=== PATIENT | male | born 1970 | race Caucasian/White ===

== ENCOUNTER 2017-06-14 06:21 | Emergency (ER) | payer MEDICARE, MEDICAID ==
[2017-06-14 06:29] VITALS: BP 145/69
[2017-06-14] MEDS ORDERED: Aspirin 81 MG Tab.Chew PO ONE (06:33)
--- NOTE | 2017-06-14 06:50 | EDM.PDOC ---
ED HPI GENERAL MEDICAL PROBLEM - General Chief Complaint: Respiratory Problem Stated Complaint: dizziness Time Seen by Provider: 06/14/17 06:21 Source of Information: Reports: Patient, EMS History Limitations: Reports: No Limitations - History of Present Illness INITIAL COMMENTS - FREE TEXT/NARRATIVE: Patient presents per EMS with complaints of shortness of breath, chest pain and syncope. He relates he left home at 11 pm last [place] States he missed his turn and has been driving all night. He states "was sort of lost but also just driving". He states he started to feel lightheaded, awoke in the ditch and had chest pain and shortness of breath. Questions if he possibly anxious due to the events. Does have a seizure history but relates did not feel a seizure coming on, hasn't had one for 5-6 years. No loss of bowel or bladder control. He was recently started on a new blood pressure medication and also questions if that made him lightheaded. Had been sober for 9 months, admits to one alcoholic beverage yesterday afternoon. Did eat last evening, has been drinking water. Does have a history of CAD, COPD and venous stasis. Also relates he has a history of a high ammonia level and was hallucinating because of it last fall which resulted in a hospital stay at the [facility]. He has been "trying to take better care of myself" since that time. Onset: Today, Sudden Duration: Minutes:, Resolved Prior to Arrival Location: Reports: Generalized Severity: Mild Associated Symptoms: Reports: Chest Pain, Shortness of Breath, Syncope. Denies : Fever/Chills, Nausea/Vomiting, Seizure - Related Data Allergies Allergy/AdvReac Type Severity Reaction Status Date / Time cat dander Allergy Cannot Verified 09/05/16 07:54 MDT Remember strawberry Allergy Cannot Verified 06/14/17 06:32 Remember pcn Allergy Hives Uncoded 06/14/17 06:32 Home Meds: Home Meds Divalproex Sodium [Depakote] 1,000 mg PO BID 08/29/16 [History] Melatonin 6 mg PO BEDTIME 09/05/16 [History] Naltrexone Microspheres [Vivitrol] 380 mg PO DAILY 06/14/17 [History] Past Medical History HEENT History: Reports: Impaired Vision Other HEENT History: glasses Cardiovascular History: Reports: Heart Failure, Hypertension, [place] Respiratory History: Reports: COPD Gastrointestinal History: Reports: Fecal Incontinence Musculoskeletal History: Reports: Fracture Neurological History: Reports: Concussion Psychiatric History: Reports: Bipolar, Psych Hospitalization(s), Other (See Below) Other Psychiatric History: manic depression, Schitzo affective disorder Hematologic History: Reports: Blood Transfusion(s) - Past Surgical History HEENT Surgical History: Reports: Other (See Below) Social & Family History - Family History Family Medical History: Noncontributory - Tobacco Use Smoking Status *Q: Current Every Day Smoker Years of Tobacco use: 30 Packs/Tins Daily: 4 - Caffeine Use Caffeine Use: Reports: None - Alcohol Use Days Per Week of Alcohol Use: 7 Number of Drinks Per Day: 10 Total Drinks Per Week: 70 - Recreational Drug Use Recreational Drug Use: Yes Drug Use in Last 12 Months: Yes Recreational Drug Type: Reports: Marijuana/Hashish Recreational Drug Use Frequency: Monthly - Living Situation & Occupation Living situation: Reports: Single Occupation: Employed ED ROS GENERAL - Review of Systems Review Of Systems: See Below Constitutional: Denies: Fever, Chills, Malaise, Weakness, Decreased Appetite HEENT: Denies: Ear Discharge, Ear Pain, Sinus Problem, Throat Pain, Vertigo Respiratory: Reports: Shortness of Breath, Wheezing, Cough Cardiovascular: Reports: Lightheadedness. Denies: Chest Pain, Edema Endocrine: Reports: Fatigue GI/Abdominal: Denies: Abdominal Pain, Diarrhea, Nausea, Vomiting : Reports: No Symptoms Musculoskeletal: Reports: No Symptoms Skin: Reports: Change in Color (lower legs have sowmya appearance. History of venous stasis.) Neurological: Reports: Syncope. Denies: Seizure Psychiatric: Reports: Anxiety ED EXAM, GENERAL - Physical Exam Exam: See Below Exam Limited By: No Limitations General Appearance: Alert, WD/WN, No Apparent Distress Ears: Normal External Exam, Normal TMs Nose: Normal Inspection, Normal Mucosa, No Blood Throat/Mouth: Normal Inspection, Normal Oropharynx Head: Normocephalic Neck: Normal Inspection, Supple, Non-Tender Respiratory/Chest: No Respiratory Distress, Wheezing Cardiovascular: Regular Rate, Rhythm GI/Abdominal: Normal Bowel Sounds, Soft, Non-Tender Extremities: Pedal Edema, Slow Capillary Refill, Redness (venous stasis in lower extremities) Neurological: Alert, Oriented Psychiatric: Normal Affect, Normal Mood Skin Exam: Warm, Dry Course - Vital Signs Last Recorded V/S: Last Vital Signs Temp 96.8 F 06/14/17 06:24 Pulse 77 06/14/17 06:24 Resp 20 06/14/17 06:24 BP 145/69 H 06/14/17 06:24 Pulse Ox 94 L 06/14/17 06:24 - Orders/Labs/Meds Orders: Active Orders 24 hr Category Date Time Status Cardiac Monitoring [RC] . DIRECTED Care 06/14/17 06:33 Active Pulse Oximetry [RC] ASDIRECTED Care 06/14/17 06:33 Active Chest 2V [CR] Stat Exams 06/14/17 06:34 Taken Head wo Cont [CT] Stat Exams 06/14/17 06:44 Taken EKG 12 Lead [EK] Stat Ther 06/14/17 06:33 Ordered Labs: Laboratory Tests 06/14/17 06/14/17 06/14/17 Range/Units 06:50 06:50 07:00 WBC 6.4 (5.0-10.0) 10^3/uL RBC 4.75 (4.50-6.00) 10^6/uL Hgb 14.7 (14.0-18.0) g/dL Hct 42.5 (40.0-54.0) % MCV 89.5 (82.0-94.0) fL MCH 30.9 (27.0-32.0) pg MCHC 34.6 (33.0-38.0) g/dL RDW Coeff of Chelsie 14.0 (11.0-15.0) % Plt Count 176 (150-400) 10^3/uL Neut % (Auto) 65.4 (35-85) % Lymph % (Auto) 23.6 (10-55) % Dickey % (Auto) 10.5 (0-16) % Eos % (Auto) 0.3 (0-5) % Baso % (Auto) 0.2 (0-3) % Neut # (Auto) 4.16 (1.80-7.00) 10^3/uL Lymph # (Auto) 1.50 (1.00-4.80) 10^3/uL Dickey # (Auto) 0.67 (0.00-0.80) 10^3/uL Eos # (Auto) 0.02 (0.00-0.45) 10^3/uL Baso # (Auto) 0.01 10^3/uL Sodium 137 (136-145) mEq/L Potassium 3.8 (3.5-5.0) mEq/L Chloride 100 (98-106) mEq/L Carbon Dioxide 30 (21-32) mmol/L BUN 4 L (7-18) mg/dL Creatinine 0.6 L (0.7-1.3) mg/dL Est Cr Clr Drug Dosing 175.06 mL/min Estimated GFR (MDRD) > 60 (>=60) mL/min Glucose 96 (75-99) mg/dL Calcium 9.2 (8.4-10.1) mg/dL Lactate Dehydrogenase 170 (100-190) U/L Creatine Kinase 61 (35-232) U/L Troponin I < 0.017 (0.00-0.06) ng/mL Urine Color Yellow (YELLOW) Urine Appearance Clear (CLEAR) Urine pH 7.0 (4.5-8.0) Ur Specific [place] 1.001 L (1.003-1.020) Urine Protein Negative (NEGATIVE) mg/dL Urine Glucose (UA) Negative (NEGATIVE) mg/dL Urine Ketones Negative (NEGATIVE) mg/dL Urine Occult Blood Trace-intact H (NEGATIVE) Urine Nitrite Negative (NEGATIVE) Urine Bilirubin Negative (NEGATIVE) Urine Urobilinogen 0.2 (0.2-1.0) EU/dL Ur Leukocyte Esterase Negative (NEGATIVE) Urine RBC Not seen (0-5) /HPF Urine WBC Not seen (0-5) /HPF Urine Opiates Screen (NEGATIVE) Ur Oxycodone Screen (NEGATIVE) Urine Methadone Screen (NEGATIVE) Ur Barbiturates Screen (NEGATIVE) U Tricyclic Antidepress (NEGATIVE) Ur Phencyclidine Scrn (NEGATIVE) Ur Amphetamine Screen (NEGATIVE) U Methamphetamines Scrn (NEGATIVE) Urine MDMA Screen (NEGATIVE) U Benzodiazepines Scrn (NEGATIVE) Urine Cocaine Screen (NEGATIVE) U Marijuana (THC) Screen (NEGATIVE) 06/14/17 Range/Units 07:00 WBC (5.0-10.0) 10^3/uL RBC (4.50-6.00) 10^6/uL Hgb (14.0-18.0) g/dL Hct (40.0-54.0) % MCV (82.0-94.0) fL MCH (27.0-32.0) pg MCHC (33.0-38.0) g/dL RDW Coeff of Chelsie (11.0-15.0) % Plt Count (150-400) 10^3/uL Neut % (Auto) (35-85) % Lymph % (Auto) (10-55) % Dickey % (Auto) (0-16) % Eos % (Auto) (0-5) % Baso % (Auto) (0-3) % Neut # (Auto) (1.80-7.00) 10^3/uL Lymph # (Auto) (1.00-4.80) 10^3/uL Dickey # (Auto) (0.00-0.80) 10^3/uL Eos # (Auto) (0.00-0.45) 10^3/uL Baso # (Auto) 10^3/uL Sodium (136-145) mEq/L Potassium (3.5-5.0) mEq/L Chloride (98-106) mEq/L Carbon Dioxide (21-32) mmol/L BUN (7-18) mg/dL Creatinine (0.7-1.3) mg/dL Est Cr Clr Drug Dosing mL/min Estimated GFR (MDRD) (>=60) mL/min Glucose (75-99) mg/dL Calcium (8.4-10.1) mg/dL Lactate Dehydrogenase (100-190) U/L Creatine Kinase (35-232) U/L Troponin I (0.00-0.06) ng/mL Urine Color (YELLOW) Urine Appearance (CLEAR) Urine pH (4.5-8.0) Ur Specific [place] (1.003-1.020) Urine Protein (NEGATIVE) mg/dL Urine Glucose (UA) (NEGATIVE) mg/dL Urine Ketones (NEGATIVE) mg/dL Urine Occult Blood (NEGATIVE) Urine Nitrite (NEGATIVE) Urine Bilirubin (NEGATIVE) Urine Urobilinogen (0.2-1.0) EU/dL Ur Leukocyte Esterase (NEGATIVE) Urine RBC (0-5) /HPF Urine WBC (0-5) /HPF Urine Opiates Screen Negative (NEGATIVE) Ur Oxycodone Screen Negative (NEGATIVE) Urine Methadone Screen Negative (NEGATIVE) Ur Barbiturates Screen Negative (NEGATIVE) U Tricyclic Antidepress Negative (NEGATIVE) Ur Phencyclidine Scrn Negative (NEGATIVE) Ur Amphetamine Screen Negative (NEGATIVE) U Methamphetamines Scrn Negative (NEGATIVE) Urine MDMA Screen Negative (NEGATIVE) U Benzodiazepines Scrn Negative (NEGATIVE) Urine Cocaine Screen Negative (NEGATIVE) U Marijuana (THC) Screen Negative (NEGATIVE) Meds: Medications Discontinued Medications Generic Name Dose Route Start Last Admin Trade Name Leda PRN Reason Stop Dose Admin Aspirin 324 mg 06/14/17 06:33 Aspirin PO 06/14/17 06:34 ONETIME ONE - Re-Assessments/Exams Free Text/Narrative Re-Assessment/Exam: 06/14/17 Labs are all negative. Chest xray overread by radiologist as showing mild pleural effusion which patient states is a normal finding for him since his issues with his heart/heart failure. Oxygen sats have remained 94% and he has been up and ambulating about as he states his legs will hurt if he remains sedentary. His CT of his head is negative. Did discuss his Vivitrol use and then using alcohol yesterday possibly creating this lightheadedness which is compounded by being up all night. Patient is feeling good, says "feels his normal self". Breakfast given and he did tolerate well. Departure - Departure Time of Disposition: 09:01 Disposition: Home, Self-Care 01 Condition: Fair Clinical Impression: Drug-alcohol interaction, Syncope, non cardiac - Discharge Information Forms: ED Department Discharge Additional Instructions: 1. Rest 2. Push fluids 3. Avoid alcohol 4. Follow up with primary provider if ongoing concerns. - My Orders Last 24 Hours: My Active Orders 06/14/17 06:33 Cardiac Monitoring [RC] . DIRECTED Pulse Oximetry [RC] ASDIRECTED EKG 12 Lead [EK] Stat 06/14/17 06:34 Chest 2V [CR] Stat 06/14/17 06:44 Head wo Cont [CT] Stat - Assessment/Plan Last 24 Hours: My Active Orders 06/14/17 06:33 Cardiac Monitoring [RC] . DIRECTED Pulse Oximetry [RC] ASDIRECTED EKG 12 Lead [EK] Stat 06/14/17 06:34 Chest 2V [CR] Stat 06/14/17 06:44 Head wo Cont [CT] Stat
[2017-06-14 07:13] LABS: CHLORIDE,CL 100 mEq/L (98-106); SODIUM,NA 137 mEq/L (136-145)
== END 2017-06-14 09:10 | disposition home or self-care (01) ==
LOC: CC.ED 06:21
DX: R55 Syncope and collapse (principal); T50.995A Adverse effect of other drugs, medicaments and biological substances, initial encounter; J44.9 Chronic obstructive pulmonary disease, unspecified; I25.10 Atherosclerotic heart disease of native coronary artery without angina pectoris; I11.0 Hypertensive heart disease with heart failure; I50.9 Heart failure, unspecified; I25.2 Old myocardial infarction; F31.9 Bipolar disorder, unspecified; F25.9 Schizoaffective disorder, unspecified; F17.210 Nicotine dependence, cigarettes, uncomplicated; Z91.018 Allergy to other foods; Z91.048 Other nonmedicinal substance allergy status; Z88.0 Allergy status to penicillin; Z79.899 Other long term (current) drug therapy
CPT/HCPCS: 36415; 70450; 71020; 80048; 80305; 81001; 82550; 83615; 84484; 85025; 93005; 93010; 99284